=== PATIENT | female | born 1980 | race Caucasian/White ===

== ENCOUNTER 2020-10-14 13:26 | Emergency (ER) | payer OTHER | END 2020-10-14 14:19 | disposition home or self-care (01) | LOC: JVIRT 13:26 | DX: Z11.52 Encounter for screening for COVID-19 (principal) | CPT/HCPCS: C9803; G2012-GT; U0003 ==

== ENCOUNTER 2021-09-10 11:50 | Emergency (ER) | payer OTHER ==
[2021-09-10 12:03] VITALS: BMI 28.5
[2021-09-10 12:47] VITALS: BP 139/72; PULSE 65; TEMP 98.6
== END 2021-09-10 16:31 | disposition home or self-care (01) ==
LOC: JER 11:50
DX: R53.83 Other fatigue (principal); Z20.822 Contact with and (suspected) exposure to COVID-19
CPT/HCPCS: 87804; 87807; 99283-25; C9803; U0003; U0005